=== PATIENT | female | born 1990 | race Caucasian/White ===

== ENCOUNTER 2020-12-23 12:07 | Emergency (ER) | payer OTHER ==
[2020-12-23 12:28] VITALS: BP 150/80; PULSE 68; TEMP 98; BMI 21.2
[2020-12-23 14:58] LABS: HEMATOCRIT 37.9 % (32.4-45.2); HEMOGLOBIN 13.3 GM/dL (10.7-15.3); MCH 31.6 pg (25.7-33.7); MEAN PLT VOLUME 8.4 fl (7.5-11.1); PLATELET COUNT 318 K/MM3 (134-434); RBC 4.21 M/mm3 (3.60-5.2); RDW 13.4 % (11.6-15.6); WHITE BLOOD COUNT 4.3 K/mm3 (4.0-10.0)
[2020-12-23 15:10] LABS: CHLORIDE 106 mmol/L (98-107); SODIUM 139 mmol/L (136-145)
[2020-12-23 15:11] LABS: CALCIUM 9.3 mg/dL (8.5-10.1)
[2020-12-23 15:12] LABS: ANION GAP 6 MMOL/L (8-16); CO2 27 mmol/L (21-32); GLUCOSE,RANDOM 92 mg/dL (74-106)
[2020-12-23 15:13] LABS: INR 1.07 (0.83-1.09); PROTHROMBIN TIME (PATIENT) 12.9 SEC (9.7-13.0)
[2020-12-23 15:15] LABS: ACTIVATED PTT 28.4 SECONDS (25.2-36.5); CREATININE 0.7 mg/dL (0.55-1.3)
[2020-12-23 16:36] LABS: ANISOCYTOSIS 1+; MACROCYTOSIS 0; PLATELET ESTIMATE NORMAL
== END 2020-12-23 15:40 | disposition home or self-care (01) ==
LOC: JER 12:07
DX: R06.09 Other forms of dyspnea (principal)
CPT/HCPCS: 36415; 71046-TC-FY; 80048; 82550; 84484; 84703; 85025; 85379; 85610; 85730; 99284-25; C9803; U0003; U0005